=== PATIENT | male | born 1995 | race African-American/Black ===

== ENCOUNTER 2020-04-14 12:20 | Emergency (ER) | payer SELFPAY ==
[~2020-04-14] VITALS: Ht 177.8 cm; Wt 79.5 kg
[2020-04-14 13:52] VITALS: BP 123/77; PULSE 48; TEMP 98
== END 2020-04-14 13:50 | disposition home or self-care (01) ==
LOC: COL.ER 12:20
DX: S63.614A Unspecified sprain of right ring finger, initial encounter (principal); W19.XXXA Unspecified fall, initial encounter; Y92.830 Public park as the place of occurrence of the external cause

== ENCOUNTER 2020-08-06 10:51 | Outpatient (RCR) | payer OTHER | END 2020-11-04 | disposition home or self-care (01) | LOC: WSOH | DX: L30.9 Dermatitis, unspecified (principal); F17.210 Nicotine dependence, cigarettes, uncomplicated; Y99.0 Civilian activity done for income or pay ==

== ENCOUNTER 2022-03-10 11:52 | Emergency (ER) | payer OTHER | END 2022-03-10 12:10 | disposition left against medical advice (07) | LOC: COL.ER 11:52 | DX: R69 Illness, unspecified (principal) ==